=== PATIENT | female | born 1995 | race Caucasian/White ===

== ENCOUNTER → 2021-04-05 10:41 | Outpatient (CLI) | payer BC, SELFPAY ==
--- NOTE | 2021-04-05 10:47 | DI.RAD.S_ITS ---
PROCEDURE: XR LUMBAR SPINE 2-3V INDICATIONS: back pain TECHNIQUE: 2 views of the lumbar spine were acquired. COMPARISON: None. FINDINGS: Bones: 5 nur-[id number] vertebrae are present. There is normal bony alignment. No vertebral body compression fractures. No suspicious bony lesions. The disc heights are well preserved. On the lateral view, there are potential L5 pars defects. No associated L5-S1 anterolisthesis is seen. Soft tissues: Overlying bowel gas pattern is normal. No suspicious soft tissue calcifications. IMPRESSION: Potential 5 pars defects can be seen on the lateral view. Otherwise, normal plain films. Dictated by: Dimas Ruiz M.D. on 04/05/2021 at 10:46 Approved by: Dimas Ruiz M.D. on 04/05/2021 at 10:47
[2021-04-05 11:16] LABS: C-Reactive Protein Quant < 0.5 mg/dL (<1.0)
[2021-04-05 11:21] LABS: Rheumatoid Factor < 8.6 IU/mL (<12.0)
[2021-04-05 11:31] LABS: Erythrocyte Sedimentation Rate 8 MM/HR (0-20)
[2021-04-07 14:48] LABS: ANA Screen, IFA Negative (.)
[2021-04-08 21:07] LABS: CCP Antibodies IgG/IgA 5 units (0-19)
== END ==
PROVIDERS: PCP Family Medicine; Referring Provider Family Medicine; Visit Provider Family Medicine
DX: M54.9 Dorsalgia, unspecified (principal); G89.29 Other chronic pain; R76.8 Other specified abnormal immunological findings in serum
CPT/HCPCS: 36415; 72100; 85651; 86038; 86140; 86200; 86430